=== PATIENT | male | born 1980 | race Caucasian/White ===

== ENCOUNTER 2016-11-27 22:32 | Emergency (ER) | payer MEDICARE ==
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
[~2016-11-27 22:32] MED LIST: CLEOCIN150 MG PO; TYLENOL #3 PO; VOLTAREN50 MG PO; ZANTAC PO
== END 2016-11-28 00:17 | disposition home or self-care (01) ==
LOC: CED 22:32
DX: S46.912A Strain of unspecified muscle, fascia and tendon at shoulder and upper arm level, left arm, initial encounter (principal); W20.8XXA Other cause of strike by thrown, projected or falling object, initial encounter; Y92.009 Unspecified place in unspecified non-institutional (private) residence as the place of occurrence of the external cause; Z88.0 Allergy status to penicillin
CPT/HCPCS: 71010; 73030; 96374; 99284; J1170

== ENCOUNTER 2017-05-01 22:21 | Emergency (ER) | payer MEDICARE ==
--- NOTE | ~2017-05-01 | US115 ---
[facility] A Service [facility] RADIOLOGY TEXT RESULTS PATIENT: KWAN HENSON LOCATION: [facility] : 84 UNIT #: [id number] AGE: [address]: Liyah Rincon MD SEX: M ORDER DR: [id number] [id number] [place], [place] [address] [id number] P MR#: [id number] Acc #: [id number] NAME: KWAN HENSON : 1980 SEX: M STUDY DATE/TIME: 05/02/2017 0:59 UNIT: [facility] ROOM: STUDY DESCRIPTION: US Scrotum and Contents Attending Physician: Liyah Rincon M.D. Ordering Physician: Liyah Rincon M.D. Primary Care Physician: Primary Care Physician No MEDICAL IMAGING REPORT This report is preliminary unless electronic signature is present EXAM Scrotal ultrasound with Doppler HISTORY Scrotal pain and swelling for 1 day. FINDINGS Ultrasound examination of the scrotum and testes was performed with roldan-scale and Doppler. There is no testicular mass or enlargement. Normal blood flow to both testes on color Doppler. Small bilateral hydroceles. No epididymal mass or enlargement. IMPRESSION 1. No testicular abnormality. Blood flow is noted in both testes on color Doppler. 2. Small bilateral hydroceles. Dictated by... Barrington Conde M.D. THIS IS AN ELECTRONICALLY VERIFIED REPORT Barrington Conde M.D. at 05/02/2017 4:39 AM LUIS ANGELL/kym TD: 05/02/2017 01:42 JOB #: [id number] MEDICAL IMAGING REPORT [facility] A Service [facility] RADIOLOGY TEXT RESULTS PATIENT: KWAN HENSON LOCATION: [facility] : 84 UNIT #: [id number] AGE: [address]: Liyah Rincon MD SEX: M ORDER DR: Page 1 of 1 COPY
[2017-05-02 01:23] LABS: URINE SOURCE CLEAN CATCH
[2017-05-02 01:30] LABS: URINE APPEARANCE CLOUDY; URINE BILIRUBIN NEG (NEG); URINE BLOOD 3+ (NEG); URINE COLOR YELLOW; URINE GLUCOSE NEG (NEG); URINE KETONE NEG (NEG); URINE LEUKOCYTE ESTERASE 2+ (NEG); URINE NITRATE NEG (NEG); URINE PROTEIN 1+ (NEG); URINE SPECIFIC GRAVITY 1.019 (1.003-1.035)
[2017-05-02 01:33] LABS: CULTURE INDICATED? YES; U HYALINE CASTS AUWI 0-2 /[LPF]; URINE BACTERIA AUWI NEG (NEGATIVE); URINE SQUAMOUS EPITHELIAL CELL NONE SEEN /[HPF]; UWBCS1 AUWI INNUM (0-5)
[2017-05-02 02:13] LABS: AMPHETAMINE POS (NEG); BARBITURATES NEG (NEG); BENZODIAZEPINES NEG (NEG); COCAINE NEG (NEG); MARIJUANA NEG (NEG); OPIATES POS (NEG); TRICYCLIC ANTIDEPRESSANTS NEG (NEG); U METHADONE NEG (NEG)
[2017-05-04 09:27] LABS: CHLAMYDIA TRACH Not Detected (Not Detected); N GONOR Detected (Not Detected)
== END 2017-05-02 03:32 | disposition home or self-care (01) ==
LOC: CED 22:21 → CFTX 23:55 → CED 05-02 03:32
PROVIDERS: Emergency Medicine
DX: A64 Unspecified sexually transmitted disease (principal); N34.2 Other urethritis; N50.812 Left testicular pain; N50.811 Right testicular pain; Z88.0 Allergy status to penicillin
CPT/HCPCS: 76870; 80307; 81003; 87086; 87491; 87591; 93976; 96372; 99284; J0696

== ENCOUNTER 2017-05-07 00:29 | Emergency (ER) | payer MEDICARE ==
[~2017-05-07] VITALS: Ht 182.9 cm; Wt 97.5 kg
== END 2017-05-07 01:46 | disposition home or self-care (01) ==
LOC: CED 00:29
DX: A54.01 Gonococcal cystitis and urethritis, unspecified (principal); N45.1 Epididymitis; F17.200 Nicotine dependence, unspecified, uncomplicated; Z88.0 Allergy status to penicillin; Z79.899 Other long term (current) drug therapy
CPT/HCPCS: 96372; 99283; J0696